=== PATIENT | male | born 1955 | race Native Hawaiian/Other Pacific Islander ===

== ENCOUNTER 2018-12-08 18:28 | Outpatient (CLI) | payer BC ==
[2018-12-08 18:45] LABS: PARTIAL THROMBOPLASTIN TIME 29.4 SECONDS (24.5-33.6)
== END 2018-12-08 23:14 | disposition home or self-care (01) ==
LOC: LAB 18:28
PROVIDERS: Family Medicine
DX: I48.91 Unspecified atrial fibrillation (principal)
CPT/HCPCS: 82550; 84484; 85610; 85730

== ENCOUNTER 2018-12-10 14:40 | Outpatient (CLI) | payer BC | END 2018-12-10 19:57 | disposition home or self-care (01) | LOC: RAD 14:40 | DX: I48.91 Unspecified atrial fibrillation (principal) ==